=== PATIENT | male | born 1995 | race Caucasian/White ===

== ENCOUNTER 2020-04-14 17:51 | Emergency (ER) | payer OTHER ==
[2020-04-14 20:59] LABS: HEMOGLOBIN 15.6 gm/dl (14.0-17.5); RED BLOOD COUNT 5.05 M/UL (4.20-5.50)
[2020-04-14 21:20] LABS: BUN/CREATININE RATIO 14 (0-10)
== END 2020-04-15 00:40 | disposition home or self-care (01) ==
LOC: ER1 17:51
PROVIDERS: Emergency Medicine
DX: R07.81 Pleurodynia (principal); I10 Essential (primary) hypertension; Z79.899 Other long term (current) drug therapy
CPT/HCPCS: 71045; 80053; 82550; 82553; 83605; 83690; 84484; 85025; 85379; 93005; 99285